=== PATIENT | female | born 1995 | race Caucasian/White ===

== ENCOUNTER 2019-07-22 13:12 | Emergency (ER) | payer SELFPAY ==
[2019-07-22 13:15] VITALS: BP 114/66; PULSE 94; RESP 16; TEMP 37.1; O2SAT 97
--- NOTE | 2019-07-22 14:00 | ED.GENADUL_ITS ---
Discharge Plan Disposition Patient Disposition: HOME Condition: Stable Discharge Details Chief Complaint: RashLesion Clinical Impression: Impetigo, Paronychia of finger Primary Care Provider: Unknown,Unknown ED Provider: Renita Brock Home Meds and New Rx's Prescriptions: New cephalexin 500 mg tablet 500 mg PO BID 7 Days Qty: 14 RF: 0 mupirocin calcium 2 % cream 1 applic TP BID Qty: 15 RF: 0 No Action albuterol sulfate 90 mcg/actuation Hfa Aerosol Inhaler 2 puff INHALATION Q6H PRNRF: 0 Discharge Instructions Instructions: Impetigo (ED), Paronychia (ED) Additional Instructions: Follow up with PCP in 3-5 days, take medications as directed. Care management will call you with follow up. Medical Decision Making 23 year old female presents with honey crusted rash noted to her chin, left cheek which is been in place for the last 7 to 9 days. She reports chills last night. Subjective fever. She also has a left fourth digit distal paronychia. Patient has no other complaints no associated symptoms, no nausea vomiting diarrhea no abdominal pain. Exam findings are consistent with impetigo and a parenchyma. Patient discussed home care of soaking topical antibiotic creams. Also given an oral antibiotic for the paronychia. Did place patient on primary care provider list for establishment of primary care provider. Did give first dose of cephalexin 500 mg p.o. in department. HPI General Date/Time Provider Initiated Documentation: 07/22/19 13:20 . Limitations to Documentation: no limitations . Information obtained by: patient . HPI Narrative: 23 year old female presents with honey crusted rash noted to her chin, left cheek which is been in place for the last 7 to 9 days. She reports chills last night. Subjective fever. She also has a left fourth digit distal paronychia. Patient has no other complaints no associated symptoms, no nausea vomiting diarrhea no abdominal pain. Related Data Home Medications Medication Instructions Recorded Confirmed albuterol sulfate 2 puff INHALATION Q6H PRN 07/22/19 07/22/19 cephalexin 500 mg PO BID 7 Days #14 tab 07/22/19 mupirocin calcium 1 applic TP BID #15 gm 07/22/19 Previous Rx's Medication Instructions Recorded cephalexin 500 mg PO BID 7 Days #14 tab 07/22/19 mupirocin calcium 1 applic TP BID #15 gm 07/22/19 Allergies Allergy/AdvReac Type Severity Reaction Status Date / Time nut - unspecified Allergy Severe Anaphylaxsi Unverified 07/22/19 13:24 s shellfish derived Allergy Severe Anaphylaxsi Unverified 07/22/19 13:24 s General Stated Complaint: RashLesion DEBORAH: 4 Review of Systems Narrative: Constitutional: Negative for weight loss, alert and oriented, well groomed, normal body habitus, appears comfortable. HEENT: Denies trauma, headaches, blurry vision, nasal discharge, sore throat, trouble swallowing. Chest: Denies chest pain, palpitations, irregular rhythm, hypertension. Respiratory: Denies Shortness of breath, cough, hemoptysis. GI: Denies abdominal pain, nausea, vomiting, diarrhea, constipation. : Denies dysuria, hematuria, flank pain, rectal bleeding. Neuro: Denies dizziness, blurry vision, weakness, syncope, headache or facial numbness. Hematologic: Denies easy bruising, intolerance to heat or cold, hair loss. Skin: Does have a facial rash consistent with impetigo, also has a distal finger infection to the nailbed. Consistent with paronychia PFSH Social History Smoking/Tobacco Use Status: Former Tobacco Use Alcohol Intake: current Alcohol Intake frequency: holidays/special occasions only Drug use: Occasionally Substance use type: marijuana Do you feel safe at home: Yes Exam Narrative Exam Narrative: Constitutional: Alert and oriented x3. Appears stated age. Normal body habitus. Head: Normocephalic, no trauma. Eyes: Pupils PERRLA, Red reflex noted, EOM's intact. Eyelids symmetrical without lesions, discharge, or swelling. ENT: Bilateral TM's WNL, External ear normal to inspection, no mastoid TTP, swelling, or erythema, Nasal turbinates WNL, no nasal discharge. Normal dentition, Posterior pharynx WNL, no exudate. Chest: RRR, Normal S1, S2, distal pulses intact. Resp: Lungs clear to auscultation bilaterally, no wheezes, rales, or rhonchi. Musculoskeletal: Normal gait, 5/5 strength to all four extremities. Skin: Raised scaly honey crusted patches of rash noted to her chin and left cheek. Capillary refill less than 2 sec. erythemic, swollen distal fourth left finger tip. Does have some mild drainage noted to bottom of her nail bed. This is consistent with crankier. Neurologic: Cranial nerves II-XII intact. Alert and oriented x 3. DTR's intact. Hematologic/Lymphatic: No ecchymosis, no lymphadenopathy. Course Vital Signs Vital signs: Vital Signs Temperature 37.1 C 07/22/19 13:15 Pulse 94 H 07/22/19 13:15 Respiratory Rate 16 07/22/19 13:15 Blood Pressure 114/66 07/22/19 13:15 Pulse Oximetry 97 07/22/19 13:15 Temperature 37.1 C 07/22/19 13:15 Temperature Source Skin 07/22/19 13:15 Pulse 94 H 07/22/19 13:15 Respiratory Rate 16 07/22/19 13:15 Respiratory Effort Non-Labored 07/22/19 13:21 Blood Pressure 114/66 07/22/19 13:15 Blood Pressure Position Sitting 07/22/19 13:15 Pulse Oximetry 97 07/22/19 13:15 Oxygen Delivery Method Room Air 07/22/19 13:15 Oxygen Flow Rate 0 07/22/19 13:15 Pain Level 0 07/22/19 13:15
[2019-07-22] MEDS: Cephalexin 500 MG CAP PO (14:29)
[2019-07-22 14:30] VITALS: BP 117/68; PULSE 64; RESP 16; O2SAT 98
--- NOTE | 2019-07-22 18:51 | NUR.NOTE ---
Nursing Note: referral copy and in care management mailbox
--- NOTE | 2019-07-24 09:51 | CMPROGNOTE_ITS ---
- If Service Date Differs Date of service: 07/24/19 Time of Service: 09:51 Care Management Progress Note CM coordinates a referral to [facility] to assist patient in establish care with a PCP.
== END 2019-07-22 14:36 | disposition home or self-care (01) ==
LOC: ER 14:41
PROVIDERS: Emergency Provider Registered Nurse Emergency
DX: L01.09 Other impetigo (principal); L03.012 Cellulitis of left finger
CPT/HCPCS: 99283